=== PATIENT | male | born 1995 | race Caucasian/White ===

== ENCOUNTER 2016-11-30 14:04 | Inpatient (IN) | payer MEDICAID, OTHER ==
[~2016-11-30] VITALS: Ht 177.8 cm; Wt 74.0 kg
[2016-11-30] MEDS ORDERED: MOM 30ML SUSPENSION UDC PO PRN (15:30)
[2016-11-30] MEDS ORDERED: ACETAMINOPHEN TAB 650MG DOSE (2X325MG) PO PRN (15:30)
[2016-11-30] MEDS ORDERED: MAALOX 30 ML SUSP *UDC PO PRN (15:30)
[2016-11-30] MEDS ORDERED: OLANZapine 5 MG TAB PO PRN (15:30)
[2016-11-30 17:22] VITALS: BP 127/73
[2016-11-30] MEDS ORDERED: NICOTINE POLACRILEX 2 MG GUM PO PRN (17:30)
[2016-11-30] MEDS: risperiDONE 0.5 MG TAB PO SCH (21:31)
[2016-11-30] MEDS: traZODone 100 MG TAB PO PRN (21:31)
--- NOTE | 2016-12-01 00:14 | HPE ---
DATE OF ADMISSION: 11/30/2016 HISTORY OF PRESENT ILLNESS: Please refer to psychiatric history and evaluation for further details on this admission. This examination and history is intended for medical issues, which may need treatment, followup or consult on this 21-year-old male. ALLERGIES: None. PRIMARY CARE PROVIDER: None. SOCIAL HISTORY: He is single. He was transferred from [facility] for psychiatric evaluation. Ethyl alcohol (EtOH): He states once or twice a month. Smokes less than a pack of cigarettes per day. Recreational drug use: Marijuana. PAST MEDICAL HISTORY: Negative. PAST SURGICAL HISTORY: 1. Tonsillectomy. 2. PE tubes. HOME MEDICATIONS: None. FAMILY HISTORY: Noncontributory. LABORATORY STUDIES: WBC 15.5, hemoglobin 15.8, hematocrit 43.4, platelets 344. BUN 10, creatinine 0.84. TSH 0.823. REVIEW OF SYSTEMS: 10-system review was done, was unremarkable. Patient had no complaints. PHYSICAL EXAMINATION: 21-year-old cooperative male in no acute distress. Vital signs are stable. Patient is alert and oriented times three. Pupils equal and react to light. Extraocular muscles intact. Cornea and sclerae clear. Conjunctivae were normal. No facial asymmetry. Pharynx, tongue and gums pink and moist. Tongue is midline. Neck is supple without lymphadenopathy. No thyromegaly, no goiter. Carotids 2+ without bruit. Chest clear to auscultation without wheeze or retraction. Heart is regular. Abdomen is benign. Bowel sounds positive. Genitourinary/rectal: Not done. Extremities show equal strength, full range of motion. No cyanosis, clubbing or edema. Peripheral pulses equal and palpable bilaterally. Skin is warm and dry. IMPRESSION/PLAN: Psychiatric plan per psychiatry. No acute medical issues.
[2016-12-01 06:23] VITALS: BP 134/75
[2016-12-01] MEDS: SERTRALINE HCL 50 MG TAB PO SCH (08:25)
[2016-12-01] MEDS: risperiDONE 0.5 MG TAB PO SCH ×2 (08:25→20:07)
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
[2016-12-01 18:16] VITALS: BP 138/84
[2016-12-01] MEDS: traZODone 100 MG TAB PO PRN (20:07)
[2016-12-02 06:38] VITALS: BP 147/79
[2016-12-02] MEDS: risperiDONE 0.5 MG TAB PO SCH ×2 (08:38→20:56)
[2016-12-02] MEDS: SERTRALINE HCL 50 MG TAB PO SCH (08:39)
[2016-12-02] MEDS ORDERED: INFLUENZA QUADRIVALENT PF VACCINE 0.5ML SYRINGE (90686) IM ONE (09:00)
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
[2016-12-02 18:00] VITALS: BP 130/76
[2016-12-02] MEDS ORDERED: QUEtiapine FUMARATE 50 MG TAB PO SCH (21:00)
[2016-12-03 06:46] VITALS: BP 133/79
[2016-12-03] MEDS: risperiDONE 0.5 MG TAB PO SCH ×2 (08:07→20:56)
[2016-12-03] MEDS: SERTRALINE HCL 50 MG TAB PO SCH (08:07)
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
[2016-12-03 18:56] VITALS: BP 128/76
[2016-12-03] MEDS: QUEtiapine FUMARATE 25 MG TAB PO SCH (20:56)
[2016-12-04 07:03] VITALS: BP 131/82
[2016-12-04] MEDS: risperiDONE 0.5 MG TAB PO SCH ×2 (08:14→20:43)
[2016-12-04] MEDS: SERTRALINE HCL 50 MG TAB PO SCH (08:14)
[2016-12-04 12:53] LABS: ANION GAP 8 MEQ/L (8-16); BLOOD UREA NITROGEN 15 MG/DL (7-18); CALCIUM LEVEL 9.6 MG/DL (8.5-10.1); CARBON DIOXIDE LEVEL 28 MEQ/L (21-32); CHLORIDE LEVEL 103 MEQ/L (98-107); CREATININE FOR GFR 0.86 MG/DL (0.70-1.30); GLOMERULAR FILTRATION RATE > 60.0 (>60); GLUCOSE, FASTING 96 MG/DL (70-105); POTASSIUM SERUM 4.4 MEQ/L (3.5-5.1); SODIUM LEVEL 139 MEQ/L (136-145)
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
[2016-12-04 18:00] VITALS: BP 118/72
[2016-12-04] MEDS: QUEtiapine FUMARATE 25 MG TAB PO SCH (20:42)
[2016-12-05 06:40] VITALS: BP 126/73
[2016-12-05] MEDS: SERTRALINE HCL 50 MG TAB PO SCH (08:52)
[2016-12-05] MEDS: risperiDONE 0.5 MG TAB PO SCH (08:52)
[2016-12-05] MEDS ORDERED: RISP0.5T21 PO (09:23)
[2016-12-05] MEDS ORDERED: NICO2GUM62 PO (09:23)
[2016-12-05] MEDS ORDERED: QUET1TAB7 PO (09:23)
[2016-12-05] MEDS ORDERED: OLAN5TAB PO (09:23)
[2016-12-05] MEDS ORDERED: SERT50TA PO (09:23)
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
[2017-01-07] MEDS ORDERED: OLAN15TA PO (14:24)
[2017-01-07] MEDS ORDERED: TRAZO50TA FT (14:27)
[2017-01-07] MEDS ORDERED: RISP0.5T3 PO (14:28)
[2017-01-07] MEDS ORDERED: SERT50TA PO (14:29)
== END 2016-12-05 10:25 | disposition home or self-care (01) | DRG 755 ==
LOC: M ED 14:04 → M ED INP 15:26 → M PSY 16:21
PROVIDERS: ADMIT Psychiatry & Neurology Psychiatry; ATTEND Psychiatry & Neurology Psychiatry
DX: F43.10 Post-traumatic stress disorder, unspecified (principal); R45.851 Suicidal ideations; F41.8 Other specified anxiety disorders; F12.10 Cannabis abuse, uncomplicated; F17.210 Nicotine dependence, cigarettes, uncomplicated; G47.00 Insomnia, unspecified